=== PATIENT | female | born 1960 | race Asian ===

== ENCOUNTER 2020-12-29 18:01 | Emergency (ER) | payer BC ==
[~2020-12-29] VITALS: Ht 160 cm; Wt 53.5 kg
[2020-12-29] MEDS ORDERED: ATORVASTATIN CA40 MG PO (18:16)
[2020-12-29] MEDS ORDERED: OMEPRAZOLE20 MG PO (19:38)
--- NOTE | 2020-12-30 12:21 | EKG ---
[facility] [address] [facility] [place], [place] [address] Signed Normal sinus rhythm Normal ECG No previous ECGs available Confirmed by NURIA URBINA DO ([id number]) on 12/30/2020 12:21:04 PM Electronically Signed By: NURIA URBINA DO 12/30/20 1221 PATIENT NAME: ARMANDOJOSSY Electrocardiogram DATE OF : 56 PHYSICIAN: NURIA URBINA DO REPORT #: [id number] REPORT IS CONFIDENTIAL AND NOT TO BE RELEASED WITHOUT AUTHORIZATION
== END 2020-12-29 19:49 | disposition home or self-care (01) ==
LOC: ED 18:01
DX: K29.00 Acute gastritis without bleeding (principal)
CPT/HCPCS: 80053; 83690; 84484; 85025; 93005; 93010; 96374; 99284-25; C9113

== ENCOUNTER 2022-04-10 08:15 | Day surgery (SDC) | payer BC ==
[~2022-04-10] VITALS: Ht 160 cm; Wt 55.9 kg
[~2022-04-10 08:15] MED LIST: ATORVASTATIN CA40 MG PO; B COMPLEX1 EACH PO; CENTRUM ADULTS1 EACH PO; EVENING PRIMRO500 M1 PO; IRON18 MG PO; MAGNESIUM30 MG PO; MILK THISTLE175 M3 PO; OMEPRAZOLE20 MG PO; VITAMIN D3 COM1 EACH PO
[2022-04-10] MEDS ORDERED: VITAMIN B122500 MC1 PO (08:42)
--- NOTE | 2022-04-10 11:22 | NUR ---
04/10/22 [address],Tamara Zhang 1119: DR. CASTRO TALKING WITH PATIENT. PATIENT EASILY AWAKENS TO VOICE. DENIES PAIN.
--- NOTE | 2022-04-14 19:03 | OR ---
[facility] [address] [place], [place] [address] Signed DATE OF OPERATION: 04/10/2022 SURGEON: Brenda Castro MD PREOPERATIVE DIAGNOSIS: History of polyp. POSTOPERATIVE DIAGNOSES: 1. Polyp of sigmoid (excised). 2. Hypertrophied anal papilla x1. PROCEDURE: Total colonoscopy to cecum with cold morcellation polypectomy x1. ANESTHESIA: Intravenous sedation, fentanyl 150 mcg and Versed 5 mg. INDICATION: This 62-year-old woman is a patient Dr. Peña. She last underwent colonoscopy in [place] approximately 10 years ago where she was said to have had at least one polyp. She is symptom free having no bleeding, diarrhea or constipation and has no family history of colon cancer. She is admitted at this time to undergo colonoscopy, understands the risks of bleeding, infection, and perforation. FINDINGS: The prep was excellent. Complete colonoscopy was then taken of the cecum with good visualization of the appendiceal orifice. There was one polyp which may have been a submucosal lymphoid aggregate, it is uncertain. This was excised from the sigmoid area with cold morcellation technique. Retroflexed view did confirm a hypertrophied anal papilla, but there were no other findings of concern. PROCEDURE IN DETAIL: The patient was brought to the endoscopy suite and placed in lateral decubitus position, given intravenous sedation to a point of slurred speech and nystagmus. Digital rectal examination was normal. An Olympus video colonoscope was passed in the rectum and manipulated throughout the colon ultimately intubating the cecum itself. The ileocecal valve and appendiceal orifice were normal. The scope was withdrawn from that point and examination throughout showed no sign of abnormality until the sigmoid colon where a small polyp was noted with Electronically Signed By: BRENDA CASTRO MD 04/14/22 190 PATIENT NAME: JOSSY ROBERTS OPERATIVE REPORT DATE OF : 56 REPORT #: [id number] PHYSICIAN: BRENDA CASTRO MD PCP: EDGAR PEÑA DO REPORT IS CONFIDENTIAL AND NOT TO BE RELEASED WITHOUT AUTHORIZATION [facility] [address] [place], [place] [address] Signed configuration on narrow band imaging suggested it may represent a submucosal lymphoid aggregate. In any case, it was excised completely with cold morcellation technique. Further withdrawal showed no other abnormality. Retroflexed view confirmed a hypertrophied anal papilla. The scope was removed. The patient was taken to recovery room in good condition. CONCLUDING DIAGNOSES: 1. Polyps x1. 2. Hypertrophied anal papilla. PLAN: Recommend repeat colonoscopy in 5 years, sooner if clinically indicated. She will return to the ongoing care of Dr. Peña otherwise. MD JONNIE Briceno/EVERTON /[id number] cc: Edgar Peña DO Copies: EDGAR PEÑA DO ~ Electronically Signed By: BRENDA CASTRO MD 04/14/22 1903 PATIENT NAME: JOSSY ROBERTS OPERATIVE REPORT DATE OF : 56 REPORT #: [id number] PHYSICIAN: BRENDA CASTRO MD PCP: EDGAR PEÑA DO REPORT IS CONFIDENTIAL AND NOT TO BE RELEASED WITHOUT AUTHORIZATION
--- NOTE | 2022-04-16 09:05 | PATH ---
[facility] [address] [place], [place] [address] Signed SPECIMEN(S): A SIGMOID POLYP SPECIMEN SOURCE: A. SIGMOID POLYP CLINICAL HISTORY: Colonoscopy. History of polyp, hemorrhoids. Post: Polyp x 1, anal papilla. FINAL PATHOLOGIC DIAGNOSIS: Colon, sigmoid, polypectomy: - Benign colonic mucosa with prominent intramucosal lymphoid aggregates. - No evidence of neoplasia. COMMENT: Examination of sections from three different levels of the tissue block discloses the presence of benign intramucosal lymphoid aggregates. Intramucosal lymphoid aggregates can sometimes appear as polyps endoscopically. They have no clinical significance. There is no evidence of dysplasia or malignancy. TWK:corrine:C2NR MICROSCOPIC EXAMINATION: Histologic sections of all submitted blocks are examined by light microscopy. These findings, together with the gross examination, support the pathologic diagnosis. GROSS DESCRIPTION: The specimen, labeled "JS, sigmoid colon polyp," is received in formalin and consists of four ro soft tissue fragments that measure 0.1-0.3 cm in greatest dimension. The specimen is entirely submitted in cassette (A1). JS (under the direct supervision of a pathologist) The Gross Description was prepared using a voice recognition system. The report was reviewed for accuracy; however, sound-alike word errors, addition and/or deletions may occur. If there is any question about this report, please contact Client Services. PERFORMING LABORATORY: The technical component was performed by [email or web address], [address] [place] [id number] (CLIA# [id number]). The professional interpretation was performed by Pain Doctor Jada Ross PATIENT NAME: JOSSY ROBERTS PATHOLOGY DATE OF : 56 REPORT #: [id number] PHYSICIAN: EBONIE PATHOLOGY PCP: PAOLO PEÑA DO REPORT IS CONFIDENTIAL AND NOT TO BE RELEASED WITHOUT AUTHORIZATION [facility] [address] [place], [place] [address] [address] (CLIA#: [id number]). Diagnostician: Ramon Foy MD Pathologist Electronically Signed 04/16/2022 Copies: ~ PATIENT NAME: JOSSY ROBERTS PATHOLOGY DATE OF : 56 REPORT #: [id number] PHYSICIAN: EBONIE PATHOLOGY PCP: PAOLO PEÑA DO REPORT IS CONFIDENTIAL AND NOT TO BE RELEASED WITHOUT AUTHORIZATION
== END 2022-04-10 11:45 | disposition home or self-care (01) ==
LOC: OPS 08:15 → DS 08:15 → OPS 10:15 → DS 10:15 → OPS 11:45 → DS 12:00
PROVIDERS: ATTEND Surgery
PROC: 0DBN8ZZ Excision of Sigmoid Colon, Via Natural or Artificial Opening Endoscopic (ICD-10-PCS; principal; 2022-04-10 10:15)
DX: Z12.11 Encounter for screening for malignant neoplasm of colon (principal); K63.5 Polyp of colon; K62.89 Other specified diseases of anus and rectum; E78.5 Hyperlipidemia, unspecified
CPT/HCPCS: J2250; J3010; J7121